=== PATIENT | male | born 1990 | race Caucasian/White ===

== ENCOUNTER 2018-12-31 04:24 | Emergency (ER) | payer SELFPAY ==
[~2018-12-31] VITALS: Ht 157.5 cm; Wt 72.7 kg
[~2018-12-31 04:24] MED LIST: NEUR300C PO; TRAZ-252 PO
[2018-12-31 06:04] VITALS: BP 129/84
== END 2018-12-31 06:05 | disposition home or self-care (01) ==
LOC: M ED 04:24
DX: J02.8 Acute pharyngitis due to other specified organisms (principal); F17.210 Nicotine dependence, cigarettes, uncomplicated; Z91.040 Latex allergy status

== ENCOUNTER 2021-12-14 17:39 | Emergency (ER) | payer OTHER, SELFPAY ==
[~2021-12-14] VITALS: Ht 160 cm; Wt 74.2 kg
[2021-12-14] MEDS ORDERED: NS 1,000 ML IV ONE (17:50)
[2021-12-14] MEDS ORDERED: BOOSTRIX/ADACEL VACCINE (DIPHTH/PERTUSS/ACELL/TETANUS) 0.5ML SYR IM.IMMUN ONE (17:50)
[2021-12-14] MEDS ORDERED: ISOVUE-370 76% 100ML VIAL As Ordered ONE (17:53)
[2021-12-14 18:15] LABS: BASO # 0.1 10^3/uL (0.0-0.2); BASO % 0.6 % (0.0-1.0); EOS # 0.2 10^3/uL (0.0-0.5); EOS % 1.4 % (0.0-3.0); HEMATOCRIT 48.9 % (42.0-52.0); HEMOGLOBIN 16.7 g/dl (13.5-17.5); LYMPH # 3.5 10^3/uL (1.5-5.0); LYMPH % 22.5 % (24.0-44.0); MEAN CORPUSCULAR HEMOGLOBIN 29.9 pg (27.0-33.0); MEAN CORPUSCULAR HGB CONC 34.2 g/dl (32.0-36.5); MEAN CORPUSCULAR VOLUME 87.5 fl (80.0-96.0); MONO # 0.8 10^3/uL (0.0-0.8); MONO % 5.3 % (2.0-8.0); NEUTROPHILS # 10.6 10^3/uL (1.5-8.5); NEUTROPHILS % 68.7 % (36.0-66.0); PLATELET COUNT, AUTOMATED 318 10^3/uL (150-450); RED BLOOD COUNT 5.59 10^6/uL (4.30-6.10); WHITE BLOOD COUNT 15.4 10^3/uL (4.0-10.0)
[2021-12-14 18:31] LABS: INR 0.95; PROTHROMBIN TIME 13.1 SECONDS (12.7-14.5)
[2021-12-14 18:32] LABS: PARTIAL THROMBOPLASTIN TIME 26.9 SECONDS (25.9-37.0)
[2021-12-14 18:46] LABS: CK-MB VALUE MASS 5.8 NG/ML (<3.6); MB/CK RELATIVE INDEX 1.26 (< OR =4)
[2021-12-14 18:47] LABS: ALBUMIN 4.1 GM/DL (3.2-5.2); ALT/SGPT 114 U/L (12-78); AMYLASE 51 U/L (25-115); BILIRUBIN,DIRECT 0.1 MG/DL (0.0-0.2); BILIRUBIN,TOTAL 0.5 MG/DL (0.2-1.0); BLOOD UREA NITROGEN 10 MG/DL (7-18); CALCIUM LEVEL 9.3 MG/DL (8.5-10.1); CARBON DIOXIDE LEVEL 29 MEQ/L (21-32); CHLORIDE LEVEL 107 MEQ/L (98-107); CREATININE FOR GFR 1.16 MG/DL (0.70-1.30); ETHYL ALCOHOL (ETHANOL) 0.004 % (0.000-0.010); GLOMERULAR FILTRATION RATE > 60.0 (>60); GLUCOSE, FASTING 116 MG/DL (70-100); LIPASE 125 U/L (73-393); POTASSIUM SERUM 3.8 MEQ/L (3.5-5.1); SODIUM LEVEL 140 MEQ/L (136-145); TOTAL PROTEIN 8.3 GM/DL (6.4-8.2)
[2021-12-14] MEDS: fentaNYL 100 MCG/2 ML INJECTION IV PRN ×2 (18:59→19:46)
[2021-12-14 20:12] VITALS: O2SAT 98
[2021-12-14 20:21] LABS: APPEARANCE, URINE CLEAR (CLEAR); BACTERIA, URINE AUTO NEGATIVE (NEGATIVE); BILIRUBIN, URINE AUTO NEGATIVE (NEGATIVE); BLOOD, URINE BLOOD NEGATIVE (NEGATIVE); COLOR, URINE YELLOW (YELLOW); GLUCOSE, URINE (UA) AUTO NEGATIVE (NEGATIVE); KETONE, URINE AUTO NEGATIVE (NEGATIVE); LEUKOCYTE ESTERASE, URINE AUTO NEGATIVE (NEGATIVE); MUCUS, URINE SMALL (NEGATIVE); NITRITE, URINE AUTO NEGATIVE (NEGATIVE); PROTEIN, URINE AUTO NEGATIVE (NEGATIVE); RBC, URINE AUTO 0 /HPF (0-3); SQUAMOUS EPITHELIAL CELL UR AU 0 /HPF (0-6); UROBILINOGEN, URINE AUTO 0.2 mg/dL (0.0-2.0); WBC, URINE AUTO 0 /HPF (0-3)
[2021-12-14 20:30] VITALS: BP 127/74
[2021-12-14] MEDS ORDERED: OXYCODONE/APAP 5MG/325MG(HOME DOSE PACK) PO ONE (20:30)
[2021-12-14 20:43] LABS: AMPHETAMINES LEVEL URINE NEGATIVE (NEGATIVE); BARBITURATES URINE NEGATIVE (NEGATIVE); BENZODIAZEPINES URINE NEGATIVE (NEGATIVE); CANNABINOIDS URINE NEGATIVE (NEGATIVE); COCAINE METABOLITE URINE NEGATIVE (NEGATIVE); METHADONE URINE NEGATIVE (NEGATIVE); OPIATES URINE NEGATIVE (NEGATIVE); PHENCYCLIDINE URINE NEGATIVE (NEGATIVE)
[2021-12-14 21:30] LABS: SPECIFIC GRAVITY URINE AUTO >1.060 (1.002-1.035)
== END 2021-12-14 20:46 | disposition home or self-care (01) ==
LOC: EDBD 17:39 → M ED 17:39
DX: S42.025A Nondisplaced fracture of shaft of left clavicle, initial encounter for closed fracture (principal); T07.XXXA Unspecified multiple injuries, initial encounter; V29.9XXA Motorcycle rider (driver) (passenger) injured in unspecified traffic accident, initial encounter
CPT/HCPCS: 70450; 71260; 72125; 73000; 73030; 74177; 80047; 80048; 80076; 80307; 81001; 82077; 82150; 82550; 82553; 83690; 85025; 85610; 85730; 86850; 86900; 86901; 90471; 90715; 93041; 94760; 96361; 96374; 99285; J3010; Q9967

== ENCOUNTER → 2021-12-20 | Outpatient (CLI) | payer OTHER | LOC: M RAD 07:40 | PROVIDERS: ATTEND Orthopaedic Surgery | DX: S42.022A Displaced fracture of shaft of left clavicle, initial encounter for closed fracture (principal); S22.030A Wedge compression fracture of third thoracic vertebra, initial encounter for closed fracture ==

== ENCOUNTER → 2022-01-01 | Outpatient (CLI) | payer OTHER | LOC: M SOG 14:32 | PROVIDERS: ATTEND Orthopaedic Surgery | DX: S42.022A Displaced fracture of shaft of left clavicle, initial encounter for closed fracture (principal); W18.30XA Fall on same level, unspecified, initial encounter; Y92.009 Unspecified place in unspecified non-institutional (private) residence as the place of occurrence of the external cause ==

== ENCOUNTER → 2022-01-16 | Outpatient (CLI) | payer OTHER | LOC: M SOG 08:52 | PROVIDERS: ATTEND Orthopaedic Surgery | DX: S42.022A Displaced fracture of shaft of left clavicle, initial encounter for closed fracture (principal); W18.30XA Fall on same level, unspecified, initial encounter; Y92.009 Unspecified place in unspecified non-institutional (private) residence as the place of occurrence of the external cause ==

== ENCOUNTER → 2022-02-07 | Outpatient (CLI) | payer OTHER | LOC: M SOG 08:00 | PROVIDERS: ATTEND Orthopaedic Surgery | DX: S42.022A Displaced fracture of shaft of left clavicle, initial encounter for closed fracture (principal) ==

== ENCOUNTER → 2022-04-14 | Outpatient (CLI) | payer OTHER | LOC: M SOG 08:08 | PROVIDERS: ATTEND Orthopaedic Surgery | DX: S42.022D Displaced fracture of shaft of left clavicle, subsequent encounter for fracture with routine healing (principal) ==

== ENCOUNTER → 2022-05-26 | Outpatient (CLI) | payer OTHER | LOC: M SOG 08:48 | PROVIDERS: ATTEND Orthopaedic Surgery | DX: S42.022D Displaced fracture of shaft of left clavicle, subsequent encounter for fracture with routine healing (principal); Z53.9 Procedure and treatment not carried out, unspecified reason ==